=== PATIENT | male | born 1935 | race Caucasian/White ===

== ENCOUNTER → 2016-12-14 | Outpatient (CLI) | payer MEDICARE, OTHER ==
[2016-12-14 09:43] LABS: APPEARANCE,URINE CLEAR; BILIRUBIN,URINE NEGATIVE (NEGATIVE); GLUCOSE, URINE 50 mg/dL (NEGATIVE); KETONES,URINE NEGATIVE (NEGATIVE); LEUKOCYTE ESTERASE,URINE NEGATIVE (NEGATIVE); NITRITE,URINE NEGATIVE (NEGATIVE); PROTEIN,URINE 100 mg/dL (NEGATIVE); URINE SPECIFIC GRAVITY 1.009; UROBILINOGEN,URINE NEGATIVE mg/dL (<2.0)
[2016-12-14 09:58] LABS: ABSOLUTE EOSINOPHILS # (AUTO) 0.1 10^3/uL (0.0-0.6); ABSOLUTE MONOCYTES (AUTO) 0.5 10^3/uL (0.1-1.4); BASOPHILS % (AUTO) 0.6 % (0-2); EOSINOPHILS % (AUTO) 1.5 % (0-6); HEMATOCRIT 37.3 % (37.9-51.0); HEMOGLOBIN 11.8 g/dL (13.5-17.0); HGB HCT DIFFERENCE -1.9; LYMPHOCYTES % (AUTO) 15.6 % (13-45); MEAN CORPUSCULAR HEMOGLOBIN 30.7 pg (27.0-33.4); MEAN CORPUSCULAR HGB CONC 31.7 g/dL (32.0-36.0); MEAN CORPUSCULAR VOLUME 97 fl (80-97); MONOCYTES % (AUTO) 7.3 % (3-13); RED BLOOD COUNT 3.86 10^6/uL (4.35-5.55); RED CELL DISTRIBUTION WIDTH 15.2 % (11.5-14.0); WHITE BLOOD COUNT 6.6 10^3/uL (4.0-10.5)
[2016-12-14 10:20] LABS: ALANINE AMINOTRANSFERASE 28 U/L (21-72); ALBUMIN 3.8 g/dL (3.5-5.0); ALKALINE PHOSPHATASE 168 U/L (38-126); ANION GAP 13 (5-19); ASPARTATE AMINO TRANSFERASE 30 U/L (17-59); BILIRUBIN,TOTAL 0.5 mg/dL (0.2-1.3); BLOOD UREA NITROGEN 53 mg/dL (7-20); CARBON DIOXIDE 28 mmol/L (22-30); CHLORIDE 100 mmol/L (98-107); CHOLESTEROL 126.54 mg/dL (0-200); CREATININE RESULT 7.57 mg/dL (0.52-1.25); Direct HDL 47 mg/dL (>40); GLUCOSE 93 mg/dL (75-110); POTASSIUM 4.7 mmol/L (3.6-5.0); SODIUM 141.4 mmol/L (137-145); TOTAL PROTEIN 6.4 g/dL (6.3-8.2); TRIGLYCERIDES 136 mg/dL (<150); URIC ACID 3.9 mg/dL (3.5-8.5)
[2016-12-14 10:31] LABS: DIRECT LDL 42 mg/dL (<100)
[2016-12-14 10:34] LABS: FREE T3 3.64 pg/mL (2.77-5.27)
[2016-12-14 10:48] LABS: THYROID STIMULATING HORMONE 3.98 uIU/mL (0.47-4.68)
[2016-12-15 07:41] LABS: THYROID PEROXIDASE (TPO) AB 17 IU/mL (0-34)
[2016-12-15 09:12] LABS: THYROGLOBULIN AB <1.0 IU/mL (0.0-0.9)
== END ==
LOC: OD 08:49
DX: M54.5 Low back pain (principal); M1A.9XX0 Chronic gout, unspecified, without tophus (tophi); E78.5 Hyperlipidemia, unspecified; I12.9 Hypertensive chronic kidney disease with stage 1 through stage 4 chronic kidney disease, or unspecified chronic kidney disease; N18.4 Chronic kidney disease, stage 4 (severe); M19.90 Unspecified osteoarthritis, unspecified site; Z85.46 Personal history of malignant neoplasm of prostate; M10.9 Gout, unspecified; K21.9 Gastro-esophageal reflux disease without esophagitis; R06.02 Shortness of breath; M10.00 Idiopathic gout, unspecified site; Z79.899 Other long term (current) drug therapy; Z51.81 Encounter for therapeutic drug level monitoring; T82.898A Other specified complication of vascular prosthetic devices, implants and grafts, initial encounter; Z12.5 Encounter for screening for malignant neoplasm of prostate
CPT/HCPCS: 36415; 84439; 84443; 84550; 85025; 80053; 81001; 86376; 84481; 83036; 80061; 71020; G0103

== ENCOUNTER → 2020-08-12 | Outpatient (CLI) | payer MEDICARE, OTHER ==
[~2020-08-12] MED LIST: REGADENOSON INJ 0.4 MG/5 ML DISP.SYRIN IV ONE
--- NOTE | 2020-08-12 12:50 | DRAGON STRESS TEST REPORT ---
Pharmacological nuclear stress test Date: August 12, 2020 Referring physician: Placido Talavera MD Performing physician: Owen Vazquez MD Indication: Chest pain Clinical history 85-year-old male with hypertension with end-stage renal disease on hemodialysis presented for further evaluation regarding a sensation of chest puffiness and bilateral lower extremity edema. Procedure The patient presented to the stress lab. Initially rest images were obtained according to standard protocol after the injection of 10.7 millicurie technetium 99m sestamibi. Subsequently the patient underwent pharmacological stress utilizing 0.4 mg of regadenoson intravenously. The patient's EKG and vital signs were monitored throughout the procedure. Subsequently patient was injected with 30.8 millicuries of technetium 99m sestamibi. After a period of rest, stress images were obtained according to standard protocol. EKG showed sinus rhythm at 81 beats per minute. The patient's stress EKG did not show any evidence for myocardial ischemia. There were no arrhythmias observed. Raw as well as processed rest and stress images were reviewed. There was mild to moderate gut uptake which did not interfere with the study. The rest and stress images show uniform uptake of radioactive isotope without any fixed or reversible defects to suggest myocardial ischemia or myocardial infarction. There is normal contractility post-rest. The calculated ejection fraction is 52 %. The TID ratio is 1.27. Conclusion The stress EKG is negative for myocardial ischemia There is no scintigraphic evidence of myocardial infarction or ischemia provoked by pharmacological stress. There is normal contractility post-stress. The gated left ventricular ejection fraction is 52 %. The TID ratio is 1.27. The patient will be given an appointment to discuss these results. [facility]
--- NOTE | 2020-08-12 15:30 | XCELERA REPORT ---
[address] [address] Transthoracic Echocardiogram Report Name: ANSON DEMARCO Age: 85 yrs Gender: Male : 1935 Patient Status: Outpatient Patient Location: RAD Study Date: 08/12/2020 10:29 AM History: Chest pain Dyspnea Height: 69 in Weight: 170 lb BSA: 1.9 m2 Procedure: A complete two-dimensional transthoracic echocardiogram was performed (2D, M-mode, spectral and color flow Doppler). The study was technically difficult with many images being suboptimal in quality. Reason For Study: CP AND DYSPNEA Previous Evaluation: No previous studies were available. History: Chest pain. Shortness of breath. HTN. Ordering Physician: NEIL VAZQUEZ Performed By: Rhonda Truong Interpretation Summary The study was technically difficult with many images being suboptimal in quality. Left ventricular systolic function is low normal. The Ejection Fraction estimate is 50-55% The right ventricle is normal in size and function. There is no mitral regurgitation noted. There is no aortic valve stenosis There is a trace amount of tricuspid regurgitation There is no pericardial effusion. MMode/2D Measurements & Calculations RVDd: 2.7 cm LVIDd: 4.9 cm FS: 28.6 % Ao root diam: 3.1 cm IVSd: 1.2 cm LVIDs: 3.5 cm EDV(Teich): 114.5 ml Ao root area: 7.3 cm2 LVPWd: 1.1 cm ESV(Teich): 51.6 ml EF(Teich): 54.9 % Doppler Measurements & Calculations MV E max igor: MV dec slope: Ao V2 max: LV V1 max P.5 cm/sec 500.3 cm/sec2 121.5 cm/sec 6.3 mmHg MV A max igor: MV dec time: 0.13 secAo max PG: LV V1 max: 119.9 cm/sec 5.9 mmHg 125.7 cm/sec MV E/A: 0.56 PA V2 max: 98.5 cm/sec PA max P.9 mmHg Left Ventricle The left ventricle is normal in size. There is moderate concentric left ventricular hypertrophy. Left ventricular systolic function is low normal. The Ejection Fraction estimate is 50-55%. Doppler measurements suggest impaired left ventricular relaxation, which is associated with grade I/IV or mild diastolic dysfunction. Regional wall motion abnormalities cannot be excluded due to limited visualization. Right Ventricle The right ventricle is normal in size and function. Atria The right atrium is normal. The left atrium is mildly dilated. The interatrial septum is intact with no evidence for an atrial septal defect. The thickening of interatrial septum suggests lipomatous hypertrophy. There is no Doppler evidence for an interatrial shunt. Mitral Valve The mitral valve is grossly normal. There is no mitral valve stenosis. There is no mitral regurgitation noted. Aortic Valve The aortic valve is sclerotic, but shows no functional abnormality. The aortic valve is mildly calcified. The aortic valve is not well visualized secondary to technical limitations. There is no aortic valve stenosis. No aortic regurgitation is present. Tricuspid Valve The tricuspid valve is not well visualized, but is grossly normal. There is no tricuspid stenosis. There is a trace amount of tricuspid regurgitation. Tricuspid regurgitation jet envelope not well defined to measure RV systolic pressure accurately. Pulmonic Valve The pulmonic valve is not well visualized. There is a trace or physiologic amount of pulmonic regurgitation. Great Vessels The aortic root is normal size. The inferior vena cava appeared normal and decreased > 50% with respiration (RAP 5-10 mmHg). Effusions There is no pericardial effusion. : NEIL VAZQUEZ Anil
== END ==
LOC: RAD 07:35
PROVIDERS: ATTEND Internal Medicine
DX: I12.0 Hypertensive chronic kidney disease with stage 5 chronic kidney disease or end stage renal disease (principal); N18.6 End stage renal disease; E78.5 Hyperlipidemia, unspecified; R07.9 Chest pain, unspecified; R01.1 Cardiac murmur, unspecified; R06.02 Shortness of breath
CPT/HCPCS: 93306; 93017; 78452; A9500; J2785; Q9969

== ENCOUNTER 2020-09-10 11:35 | Emergency (ER) | payer MEDICARE, OTHER ==
--- NOTE | 2020-09-10 12:44 | ER Document Report ---
ED Medical Screen (RME) - General Chief Complaint: Chest Pain Stated Complaint: CHEST PAIN Time Seen by Provider: 09/10/20 12:36 Primary Care Provider: NEIL ROE MD [Primary Care Provider] - Follow up as needed TRAVEL OUTSIDE OF THE [place] IN LAST 30 DAYS: No - HPI Notes: 09/10/20 12:42 85-year-old male with past medical history significant for hypertension with end-stage renal disease on hemodialysis every Wednesday, , Wednesday to the emergency department with complaints of left-sided chest pain that began 1 week ago. He states it hurts every time he takes a big deep breath and with movement. He also admits that when he lays down he feels short of breath and is sweating. He states that he has never had a heart attack before. He is not on any blood thinners. He states that he noticed the pain predominantly after picking grapes and picking up a bucket of grapes. He states he felt a ripping sensation at that time. He states he did have dialysis this morning and told the dialysis nurses about the chest pain and they suggested that he go get seen by his doctor. He thinks his reed polisher is Dr. Sales. States he has history of blood clots in his arm or his fistula is. Noted to be slightly tachycardic at 106 and hypertensive. I performed a brief medical screening exam on the patient determined that the patient needs further evaluation and management by main side provider. I have placed initial orders to help expedite care. - Related Data Allergies/Adverse Reactions: No Known Allergies Allergy (Verified 09/10/20 12:34) Past Medical History - Social History Frequency of alcohol use: Occasional - Past Medical History Cardiac Medical History: Reports: Hx Hypercholesterolemia, Hx Hypertension Renal/ Medical History: Reports: Hx End Stage Renal Disease, Hx Hemodialysis - -, Hx Kidney Stones GI Medical History: Reports: Hx Gastroesophageal Reflux Disease Musculoskeltal Medical History: Reports Hx Arthritis, Reports Hx Gout Psychiatric Medical History: Reports: Hx Depression Past Surgical History: Reports: Hx Appendectomy, Hx Cholecystectomy, Hx Vidhya iorrhaphy - Umbilical, Hx Vascular Surgery - AV fistula left upper arm - Immunizations Hx Diphtheria, Pertussis, Tetanus Vaccination: No Physical Exam - Vital signs Vitals: Temp Pulse Resp BP Pulse Ox 97.7 F 106 H 15 179/72 H 96 10/20/20 11:46 09/10/20 11:46 09/10/20 11:46 09/10/20 11:46 09/10/20 11:46 Course - Vital Signs Vital signs: Temp Pulse Resp BP Pulse Ox 97.7 F 106 H 15 179/72 H 96 09/10/20 11:46 09/10/20 11:46 09/10/20 11:46 09/10/20 11:46 09/10/20 11:46 Doctor's Discharge - Discharge Referrals: NEIL ROE MD [Primary Care Provider] - Follow up as needed
[2020-09-10 14:01] LABS: ABSOLUTE LYMPHOCYTES (AUTO) 0.6 10^3/uL (0.5-4.7); ABSOLUTE MONOCYTES (AUTO) 0.8 10^3/uL (0.1-1.4); ABSOLUTE NEUT (AUTO) 6.1 10^3/uL (1.7-8.2); BASOPHILS % (AUTO) 0.3 % (0-2); EOSINOPHILS % (AUTO) 0.4 % (0-6); HEMATOCRIT 45.9 % (37.9-51.0); HEMOGLOBIN 15.7 g/dL (13.5-17.0); LYMPHOCYTES % (AUTO) 7.8 % (13-45); MEAN CORPUSCULAR HEMOGLOBIN 32.9 pg (27.0-33.4); MEAN CORPUSCULAR HGB CONC 34.1 g/dL (32.0-36.0); MEAN CORPUSCULAR VOLUME 96 fl (80-97); MONOCYTES % (AUTO) 10.1 % (3-13); PLATELET COUNT 201 10^3/uL (150-450); RED BLOOD COUNT 4.76 10^6/uL (4.35-5.55); RED CELL DISTRIBUTION WIDTH 14.9 % (11.5-14.0); SEGMENTED NEUTROPHILS % (AUTO) 81.4 % (42-78); TOTAL CELLS COUNTED % (AUTO) 100 %; WHITE BLOOD COUNT 7.6 10^3/uL (4.0-10.5)
[2020-09-10 14:08] LABS: INTERNATIONAL RATION (INR) 0.93; PARTIAL THROMBOPLASTIN TIME 27.6 SEC (23.5-35.8); PROTHROMBIN TIME 12.7 SEC (11.4-15.4)
--- NOTE | 2020-09-10 14:17 | RADIOLOGY REPORT (SQ) ---
EXAM DESCRIPTION: CHEST SINGLE VIEW IMAGES COMPLETED DATE/TIME: 09/10/2020 1:27 pm REASON FOR STUDY: chest pain COMPARISON: 12/14/2016 EXAM PARAMETERS: NUMBER OF VIEWS: One view. TECHNIQUE: Single frontal radiographic view of the chest acquired. RADIATION DOSE: NA LIMITATIONS: None. FINDINGS: LUNGS AND PLEURA: Peripheral interstitial opacities in the right lung increased over previ ous. Similar of the left base increased over previous. Left basilar atelectasis. MEDIASTINUM AND HILAR STRUCTURES: No masses. Contour normal. HEART AND VASCULAR STRUCTURES: Heart normal in size. Normal vasculature. BONES: No acute findings. HARDWARE: None in the chest. OTHER: No other significant finding. IMPRESSION: Increased interstitial changes over the previous study. Left basilar atelectasis. TECHNICAL DOCUMENTATION: JOB ID: [id number] 2010 [employer]- All Rights Reserved Reading location - IP/workstation name: [email or web address]
[2020-09-10 14:30] LABS: ALBUMIN 4.6 g/dL (3.5-5.0); ALKALINE PHOSPHATASE 117 U/L (38-126); ANION GAP 15 (5-19); ASPARTATE AMINO TRANSFERASE 26 U/L (17-59); BILIRUBIN,DIRECT 0.6 mg/dL (0.0-0.4); BILIRUBIN,TOTAL 0.7 mg/dL (0.2-1.3); BLOOD UREA NITROGEN 25 mg/dL (7-20); CALCIUM 10.1 mg/dL (8.4-10.2); CARBON DIOXIDE 29 mmol/L (22-30); CHLORIDE 93 mmol/L (98-107); GLUCOSE 96 mg/dL (75-110); POTASSIUM 5.2 mmol/L (3.6-5.0); TOTAL PROTEIN 7.7 g/dL (6.3-8.2)
--- NOTE | 2020-09-10 14:55 | ER Document Report ---
ED General - General Chief Complaint: Chest Pain Stated Complaint: CHEST PAIN Time Seen by Provider: 09/10/20 12:36 Primary Care Provider: NEIL ROE MD [Primary Care Provider] - Follow up as needed TRAVEL OUTSIDE OF THE [place] IN LAST 30 DAYS: No - HPI Notes: Patient is an 85-year-old male who presents to the emergency department for evaluation of chest pain. He states it started 10 days ago when he was lifting up a 5 pound bucket of grapes. He states is in the center of his chest, on both sides of the sternum. He describes it as sharp. He states it hurts to take a deep breath, it hurts to push down with his right arm. He states the pain does not radiate. He denies any associated nausea, diaphoresis, near syncope. He denies any recent changes in his medications. He was dialyzed this morning. He states "the machine kept going off" that he took off 350 instead of 450 as usual. He states he told him about his chest pain today and they recommended he come to the emergency department for further evaluation. The patient did have a stress test and echocardiogram performed last month by Dr. Roe, he does not yet know the results of these tests. - Related Data Allergies/Adverse Reactions: No Known Allergies Allergy (Verified 09/10/20 12:34) Past Medical History - General Information source: Patient - Social History Smoking Status: Former Smoker Frequency of alcohol use: Occasional - Formerly a heavy drinker Family History: Reviewed & Not Pertinent, Hypertension - Past Medical History Cardiac Medical History: Reports: Hx Hypercholesterolemia, Hx Hypertension Renal/ Medical History: Reports: Hx End Stage Renal Disease, Hx Hemodialysis - , Hx Kidney Stones Malignancy Medical History: Reports Hx Prostate Cancer GI Medical History: Reports: Hx Gastroesophageal Reflux Disease Musculoskeletal Medical History: Reports Hx Arthritis, Reports Hx Gout Psychiatric Medical History: Reports: Hx Depression Past Surgical History: Reports: Hx Appendectomy, Hx Cholecystectomy, Hx Herniorrhaphy - Umbilical, Hx Vascular Surgery - AV fistula left upper arm - Immunizations Hx Diphtheria, Pertussis, Tetanus Vaccination: No Hx Pneumococcal Vaccination: 09/22/07 Review of Systems - Review of Systems Constitutional: No symptoms reported EENT: No symptoms reported Cardiovascular: See HPI Respiratory: See HPI Gastrointestinal: No symptoms reported Genitourinary: No symptoms reported Musculoskeletal: No symptoms reported Skin: No symptoms reported Neurological/Psychological: No symptoms reported -: Yes All other systems reviewed and negative Physical Exam - Vital signs Vitals: Temp Pulse Resp BP Pulse Ox 97.7 F 106 H 15 179/72 H 96 09/10/20 11:46 09/10/20 11:46 09/10/20 11:46 09/10/20 11:46 09/10/20 11:46 - Notes Notes: Vital signs reviewed, please refer to chart. Head is normocephalic, atraumatic. Pupils equal round, reactive to light. Neck is supple without meningismus. Heart is regular rate and rhythm. Lungs are clear to auscultation bilaterally. Chest wall is tender to palpation. Palpable thrill in AV fistula, left upper extremity. Abdomen is soft, nontender, normoactive bowel sounds throughout. 1+ pitting edema pretibially bilaterally. Extremities without cyanosis, clubbing. Posterior calves are nontender. Peripheral pulses are equal. Skin is warm and dry. Patient is awake, alert, neurological exam is nonfocal. Course - Re-evaluation Re-evalutation: 09/10/20 15:01 Patient is an 85-year-old male who presents to the emergency department with chest pain. He was placed on a threat monitoring analyst, laboratory investigations and imaging were obtained. The patient's pain is reproducible with palpation. It is reproducible with movement of his arm. Has a sudden onset with a tearing sensation when he was lifting something with his right upper extremity. He had a negative stress test, as verified by my review of [facility] records here, just last month. I do not believe this is cardiac pain. He has a history of a blood clot in his AV fistula, but no history of pulmonary embolus, DVT, no family history of either. Currently awaiting results, patient is stable. We will continue to monitor. 09/10/20 16:44 Patient's pain continues to be stable. Again it is worsened with movement of his arm. It is reproducible. I talked to the patient about trying to relieve his pain. He states that Percocet was absolutely no help, but he did get some relief with Tylenol. I did order him some Tylenol. The patient cannot take blood thinners, he has had significant bleeding in the past. I do not have a strong suspicion for PE in this patient who has no history of DVT or PE, no p osterior calf tenderness. Again his pain is reproducible, with sudden onset with musculoskeletal movement. I will have him follow-up with his primary care provider. He is to return to the ED with worsening or new concerning symptoms of any sort. - Vital Signs Vital signs: Temp Pulse Resp BP Pulse Ox 97.7 F 106 H 18 129/87 H 97 09/10/20 11:46 09/10/20 11:46 09/10/20 15:17 09/10/20 15:17 09/10/20 15:17 - Laboratory Result Diagrams: 09/10/20 13:47 09/10/20 13:47 Laboratory results interpreted by me: 09/10/20 09/10/20 13:47 13:47 RDW 14.9 H Lymph % (Auto) 7.8 L Seg Neutrophils % 81.4 H Sodium 136.8 L Potassium 5.2 H Chloride 93 L BUN 25 H Creatinine 6.44 H Est GFR ( Amer) 10 L Est GFR (MDRD) Non-Af 8 L Direct Bilirubin 0.6 H - Diagnostic Test Radiology reviewed: Reports reviewed Radiology results interpreted by me: 09/10/20 15:02 Chest X-Ray 09/10/20 12:41 IMPRESSION: Increased interstitial changes over the previous study. Left basilar atelectasis. - EKG Interpretation by Me Additional EKG results interpreted by me: 09/10/20 15:03 Sinus tachycardia with a rate of 105 bpm. Normal axis and intervals. No acute ST elevation or depression concerning for infarction or ischemia. No significant change in compared to prior study of July 2016 Discharge - Discharge Clinical Impression: Chest wall pain Condition: Stable Disposition: HOME, SELF-CARE Instructions: Chest Wall Pain ([facility]) Additional Instructions: Based on your findings here today, I suspect that your chest pain is musculoskeletal. Please take Tylenol at home as needed for pain. Follow-up with your primary care provider this week. If you develop worsening or new concerning symptoms of any sort, please return immediately to the emergency department for evaluation. Referrals: NEIL ROE MD [Primary Care Provider] - Follow up as needed
[2020-09-10] MEDS ORDERED: ACETAMINOPHEN 325 MG TABLET PO ONE (16:43)
[2020-09-10 17:13] VITALS: BP 183/83
--- NOTE | 2020-09-10 21:19 | EKG REPORT ---
SEVERITY:- ABNORMAL ECG - SINUS TACHYCARDIA PROBABLE INFERIOR INFARCT, OLD : Confirmed by: Owen Vazquez MD 10-Sep-2020 21:19:27
== END 2020-09-10 17:18 | disposition home or self-care (01) ==
LOC: ER 11:35
DX: R07.89 Other chest pain (principal); E78.00 Pure hypercholesterolemia, unspecified; I12.0 Hypertensive chronic kidney disease with stage 5 chronic kidney disease or end stage renal disease; N18.6 End stage renal disease; Z99.2 Dependence on renal dialysis; Z90.49 Acquired absence of other specified parts of digestive tract
CPT/HCPCS: 93005; 99285; 36415; 85025; 85610; 85730; 80053; 84484; 71045; 93010; A9270